=== PATIENT | female | born 2005 | race Caucasian/White ===

== ENCOUNTER 2024-10-28 23:17 | Emergency (ER) | payer BC, SELFPAY ==
[2024-10-28 23:19] VITALS: BP 120/72
[2024-10-29 00:18] VITALS: BMI 21.7
[2024-10-29 00:20] VITALS: BP 133/90
--- NOTE | 2024-10-29 00:21 | ED.GENMED ---
History of Present Illness
<JC Gaviria - Last Filed: 10/29/24 01:02>
General
Chief Complaint: Skin Problem
Source: patient and family
Exam Limitations: none
Time Seen by Provider: 10/29/24 00:09
Nursing documentation reviewed up to this point in time: agreed with
History of Present Illness
History of Present Illness:
Pt is a 19 y/o F with PMH of PTSD who presents to the ED with rash on her L forehead x 1 day. She states that a few days ago she began to have pain around her L eyebrow, where she thought she had bumped/injured it in her sleep. This morning, she
woke up with a small rash just above her L eyebrow, which spread towards her hairline throughout the day, which caused her to come in. She admits to associated burning, tingling and pain in the area of the rash. She also admits to associated eye
discomfort, which she describes as 'feeling like her eye doesn't have enough room.' Pt's mother states pt did receive VZV vaccination when she was younger. Pt denies fever, chills, DUMONT, changes in vision, discharge from eye, discharge from rash,
nausea, vomiting, sore throat, chest pain.
Review of Systems
<JC Gaviria - Last Filed: 10/29/24 01:02>
Review of Systems
Allergies reviewed?: Yes
Other source history: family
Constitutional: Denies fever, fatigue or chills
EENT: Denies tearing or sore throat
Respiratory: Denies cough or trouble breathing
Cardiac: Denies chest pain or palpitations
ABD/GI: Denies abdominal pain, nausea or vomiting
Skin: Reports itching and rash
Neurological: Denies dizzy, headache or numbness
Phy Exam
<JC Gaviria - Last Filed: 10/29/24 01:02>
General Physical Exam
General Presentation: well appearing and no apparent distress
General age: appears stated age
General Skin: warm and dry
General Habitus: normal
General Mental: alert
General Hydration: appears well hydrated
ENT Exam
ENT Exam: neck supple and normocephalic
Eye Exam
Eye Exam: PERRL and EOMI
Cardiovascular Exam
Cardiovascular Exam: regular rate/rhythm
Pulmonary Exam
Pulmonary Exam: lungs clear and no respiratory distress
Neurological Exam
Neurological Exam: alert, oriented x3, no motor deficits, no sensory deficits and speech normal
Skin Exam
Skin Exam: other (papulovesicular rash located along Left V1 dermatome from L eyebrow to L hairline - does not cross midline, no signs of infxn)
Course
<JC Gaviria - Last Filed: 10/29/24 01:02>
Orders/Labs/Results
Orders:
Orders
10/29/24 00:34
Valacyclovir HCl [Valtrex] 1,000 mg PO NOW STA
10/29/24 00:46
Trifluridine [Viroptic 1% Eye Drops] See Dose Instructions OPHTH NOW STA
Vital Signs
Initial and Last Documented VS:
Initial Vital Signs
Temp Pulse Resp BP Pulse Ox
97.9 F 78 16 120/72 100
10/28/24 23:19 10/28/24 23:19 10/28/24 23:19 10/28/24 23:19 10/28/24 23:19
Last Documented Vital Signs
Temp Pulse Resp BP Pulse Ox
97.9 F 78 16 133/90 99
10/28/24 23:19 10/28/24 23:19 10/28/24 23:19 10/29/24 00:20 10/29/24 00:21
<Cici Galeano DO - Last Filed: 10/29/24 01:24>
Orders/Labs/Results
Orders:
Orders
10/29/24 00:34
Valacyclovir HCl [Valtrex] 1,000 mg PO NOW STA
10/29/24 00:46
Trifluridine [Viroptic 1% Eye Drops] See Dose Instructions OPHTH NOW STA
Vital Signs
Initial and Last Documented VS:
Initial Vital Signs
Temp Pulse Resp BP Pulse Ox
97.9 F 78 16 120/72 100
10/28/24 23:19 10/28/24 23:19 10/28/24 23:19 10/28/24 23:19 10/28/24 23:19
Last Documented Vital Signs
Temp Pulse Resp BP Pulse Ox
97.9 F 78 16 133/90 99
10/28/24 23:19 10/28/24 23:19 10/28/24 23:19 10/29/24 00:20 10/29/24 00:21
<JC Gaviria - Last Filed: 10/29/24 01:02>
MDM/Problems Addressed
Differential Diagnosis Includes:
Herpes Zoster, Varicella Zoster, impetigo, contact dermatitis
<JC Gaviria - Last Filed: 10/29/24 01:02>
*Critical Care Note
Total Time (30-74mins, 75-104mins- exclusive of procedures): Not Applicable
<Cici Galeano DO - Last Filed: 10/29/24 01:24>
*Pulse Oximetry
Patient hypoxic: no
*Critical Care Note
Total Time (30-74mins, 75-104mins- exclusive of procedures): Not Applicable
ED Attending Note
<JC Gaviria - Last Filed: 10/29/24 01:02>
-
Portions of this chart may have been created with voice recognition software.� Occasional wrong word or��sound alike� substitutions may have occurred due to the inherent limitations of voice recognition software.
<Cici Galeano, DO - Last Filed: 10/29/24 01:24>
ED Attending Note
Patient seen and examined by attending physician: Yes
I performed the substantive portion of visit, reviewed & personally made and approve the management plan that is documented in note by myself or FRANCOIS.: Yes
ED Attending Note:
This is a 19-year-old female with history of PTSD chronically maintained on Zoloft. She complains of 2 to 3-day history of pain, discomfort left forehead without insightful injury. Today however she noticed a confluent papular rash to her left
forehead that has gotten progressively worse, spreading to her left frontal hairline throughout the day today. Rash is mildly itchy but also somewhat painful. She also notes mild irritation to her eye, mild discomfort which she describes as a mild
pressure to her left eye but no foreign body sensation, no tearing, no photophobia, no vision difficulty.
She is up-to-date with immunizations and did receive routine Varivax vaccinations.
According to patient and mom she does not believe she has ever had chickenpox.
No history of immunocompromise.
GENERAL: 19-year-old female appears her stated age, bright and alert, pleasant, appears in no acute distress. Mother is accompanying.
EYE: pupils equal and reactive. Extraocular muscles intact. There is no conjunctival injection, no scleral injection, no tearing, no chemosis. Anicteric
NECK: Supple, nontender, no meningismus, no significant adenopathy.
ENT: posterior pharynx is clear, oral mucosa is moist. TM clear b/l, nares patent.
CARDIAC: Regular rate and rhythm. no murmur.
LUNGS: Clear breath sounds bilaterally, no acute respiratory distress, no wheezes/rales/rhonchi
ABDOMEN: Soft, nondistended, without focal tenderness, no r/g, no cvat. normoactive BS.
NEUROLOGICAL: Alert and oriented x3, no focal neuro deficits. Gait is gonzalez and steady.
SKIN: Warm and dry, normal color, skin intact. There is a confluent papulovesicular rash/patch left forehead that extends to left lateral frontal scalp. No crusting or drainage. No soft tissue swelling. Mildly focally tender to palpation.
MUSCULOSKELETAL: No C/C/E. peripheral pulses are full and equal b/l. No palpable tenderness.
PSYCH: Normal and appropriate interaction.
History and exam most consistent with acute herpes zoster. I suspect patient has history of very mild chickenpox illness in the past.
Although physical exam of eye and orbit are unremarkable, there is concern for early herpes zoster keratitis thus will initiate a 7-day course of Valtrex and initiate a course of Viroptic eyedrops.
Recommend avoidance of young children, avoidance of contact with others who have no history of chickenpox.
May take Tylenol versus ibuprofen as needed for pain.
Prompt follow-up with PCP for recheck.
Discharge Plan
Departure
Patient Disposition: Home (Routine Discharge)
Date of Disposition: 10/29/24
Time of Disposition: 01:05
Patient with high blood pressure during this ER visit?: No
Condition: Good
Discharge Problem:
herpes zoster Left V-1 distribution
Instructions: Shingles
Prescriptions:
New
valacyclovir [Valtrex] 1 gram tablet
1,000 mg PO TID Qty: 20 0RF
trifluridine 1 % drops
1 drp ophthalmic (eye) Q4H 7 Days Qty: 7.5 0RF
Referrals:
Frankie Bustos MD [Family Provider] - Call in 1-3 days for appt
Interventions
Interventions:
*Risk Screen - Suicide Last Done: 10/29/24 00:21
*General Assessment Last Done: 10/28/24 23:19
*Neglect/Abuse Screening Last Done: 10/29/24 01:09
ED- Fall Risk Assessment Last Done: 10/29/24 00:21
*ED COVID-19 Vaccine History Last Done: 10/28/24 23:19
ED-Skin Assessment Last Done: 10/29/24 00:21
Discharge Date and Time
Print Language: KOREAN
[2024-10-29] MEDS: VALTREX 1000 MG PO (00:51)
[2024-10-29] MEDS: VIROPTIC 1% EYE DROPS 1 DROP OPHTH (01:02)
== END 2024-10-29 01:24 | disposition home or self-care (01) ==
LOC: EMR 23:17
PROVIDERS: EMERGENCY PHYSICIAN Emergency Medicine; FAMILY PHYSICIAN Internal Medicine
DX: B02.9 Zoster without complications (principal); H57.89 Other specified disorders of eye and adnexa
CPT/HCPCS: 99283